=== PATIENT | male | born 1955 | race African-American/Black ===

== ENCOUNTER 2020-02-06 18:30 | Emergency (ER) | payer OTHER ==
[2020-02-06 18:37] VITALS: BP 137/79
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
--- NOTE | 2020-02-06 22:01 | RADIOLOGY REPORT (SQ) ---
EXAM DESCRIPTION: L SPINE WHOLE, five views CLINICAL HISTORY: 64 years Male, injury COMPARISON: None. FINDINGS: Trace vascular calcifications are identified. Sacrum and SI joints appear intact. Five nonrib-bearing lumbar vertebral bodies are identified. Pedicles are intact. Alignment of spine is anatomic. Vertebral body heights and disc spaces are preserved. Oblique views demonstrate no lysis. There is very minimal facet arthropathy at L4-5. IMPRESSION: No acute process. No fracture.
--- NOTE | 2020-02-06 22:03 | RADIOLOGY REPORT (SQ) ---
EXAM DESCRIPTION: T SPINE AP/LAT, two views CLINICAL HISTORY: 64 years Male, injury COMPARISON: None. FINDINGS: 12 rib-bearing thoracic segments are noted. There is subtle curvature convex left which may be positional. Vertebral body heights and disc spaces are preserved. No fracture. No paraspinal abnormality. Visualized portion of the chest and lungs are normal. IMPRESSION: No acute process.
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
[2020-02-06 23:19] LABS: APPEARANCE,URINE CLEAR; BILIRUBIN,URINE NEGATIVE (NEGATIVE); COLOR,URINE YELLOW; GLUCOSE, URINE NEGATIVE (NEGATIVE); KETONES,URINE NEGATIVE (NEGATIVE); LEUKOCYTE ESTERASE,URINE NEGATIVE (NEGATIVE); NITRITE,URINE NEGATIVE (NEGATIVE); PROTEIN,URINE NEGATIVE (NEGATIVE); URINE SPECIFIC GRAVITY 1.026
== END 2020-02-06 23:38 | disposition left against medical advice (07) ==
LOC: ER 18:30
DX: M54.2 Cervicalgia (principal); M54.9 Dorsalgia, unspecified; V44.5XXA Car driver injured in collision with heavy transport vehicle or bus in traffic accident, initial encounter; M47.812 Spondylosis without myelopathy or radiculopathy, cervical region; G89.29 Other chronic pain; Z79.891 Long term (current) use of opiate analgesic; F17.200 Nicotine dependence, unspecified, uncomplicated; Z53.20 Procedure and treatment not carried out because of patient's decision for unspecified reasons
CPT/HCPCS: 72050; 72070; 72110; 81001; 99281

== ENCOUNTER 2020-02-07 09:52 | Emergency (ER) | payer OTHER ==
[2020-02-07 10:12] VITALS: BP 142/82
[2020-02-07] MEDS ORDERED: LIDOCAINE 5% (700 MG) TRANSDERMAL ADH..PATCH TP ONE (10:30)
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
== END 2020-02-07 10:30 | disposition home or self-care (01) ==
LOC: ER 09:52
DX: M54.2 Cervicalgia (principal); V89.2XXA Person injured in unspecified motor-vehicle accident, traffic, initial encounter; F17.200 Nicotine dependence, unspecified, uncomplicated; Z88.6 Allergy status to analgesic agent
CPT/HCPCS: 99283